=== PATIENT | female | born 1995 | race African-American/Black ===

== ENCOUNTER 2019-02-21 21:40 | Emergency (ER) | payer MEDICAID ==
[~2019-02-21] VITALS: Ht 170.2 cm; Wt 104.3 kg
[2019-02-21 22:28] LABS: *BILIRUBIN,URIN NEGATIVE (NEGATIVE); *BLOOD, URINE 3+ (NEGATIVE); *CLARITY,URINE SLIGHTLY CLOUDY (CLEAR); *COLOR,URINE YELLOW (YELLOW); *KETONES,URINE NEGATIVE (NEGATIVE); *UROBILINOGEN,URINE 0.2 E.U./dl (NORMAL); LEUKOCYTE ESTERASE ,URINE TRACE (NEGATIVE); NITRITE, URINE NEGATIVE (NEGATIVE); PH,URINE 5.5 (5.0-8.0); UGLUCOSE NEGATIVE (NEGATIVE)
[2019-02-21 22:31] LABS: *URINE HCG, QUAL NEGATIVE (NEGATIVE)
[2019-02-21 22:37] LABS: BACTERIA,URINE MODERATE /HPF (NONE SEEN); MUCUS,URINE FEW /LPF (0-FEW); SQUAMOUS EPITHELIAL CELL,UR MODERATE /HPF (NONE SEEN); YEAST,URINE MODERATE /HPF (NONE SEEN)
[2019-02-21] MEDS ORDERED: FLUCONAZOLE 100 MG TABLET PO ONE (23:15)
[2019-02-21] MEDS ORDERED: FLUCONAZOLE 100 MG TABLET ONE (23:27)
--- NOTE | 2019-02-21 23:31 | NUR ---
Patient discharged to home in stable conditon. Written and verbal after care instructions given. Patient verbalizes understanding of instructions. patient ambulatory, alert and oriented x4. Patient has good understanding of health and verblizes understanding of treatment and discharge instructions. patient left with personal belongings and discharge instructions.
== END 2019-02-21 23:38 | disposition home or self-care (01) ==
LOC: ER 21:42
DX: N76.0 Acute vaginitis (principal); B96.89 Other specified bacterial agents as the cause of diseases classified elsewhere; F17.290 Nicotine dependence, other tobacco product, uncomplicated; Z71.6 Tobacco abuse counseling
CPT/HCPCS: 84703; 87086; 87210; A4663

== ENCOUNTER 2019-03-03 15:40 | Emergency (ER) | payer MEDICAID ==
[~2019-03-03] VITALS: Ht 170.2 cm; Wt 104.8 kg
--- NOTE | 2019-03-03 16:24 | NUR ---
Dr Worthington is at bedside doing the MSE.
[2019-03-03] MEDS ORDERED: CEphaleXIN 500 MG CAPSULE PO ONE (16:30)
[2019-03-03] MEDS ORDERED: predniSONE 20 MG TABLET PO ONE (16:30)
[2019-03-03] MEDS ORDERED: CEphaleXIN 500 MG CAPSULE ONE (16:38)
[2019-03-03] MEDS ORDERED: predniSONE 50 MG TABLET ONE (16:38)
[2019-03-03] MEDS ORDERED: predniSONE 10 MG TABLET ONE (16:38)
--- NOTE | 2019-03-03 16:48 | NUR ---
Patient discharged to home in stable conditon with brisk steady gait. Written and verbal after care instructions given to patient. Patient verbalizes understanding & compliance of instructions.
== END 2019-03-03 16:50 | disposition home or self-care (01) ==
LOC: ER 15:41
DX: J02.9 Acute pharyngitis, unspecified (principal); R19.7 Diarrhea, unspecified; F17.200 Nicotine dependence, unspecified, uncomplicated
CPT/HCPCS: 99283; J7512 ×2; A4663

== ENCOUNTER 2019-03-24 00:22 | Inpatient (IN) | payer MEDICAID ==
[2019-03-24] VITALS (15 sets, daily range): BP systolic 90–117; BP diastolic 30–57
[~2019-03-24] VITALS: Ht 170.2 cm; Wt 103.9 kg
[2019-03-24] MEDS ORDERED: IV NORMAL SALINE 1000 ML BAG IV ONE (00:45)
--- NOTE | 2019-03-24 00:45 | NUR ---
at bedside for MSE,
--- NOTE | 2019-03-24 00:52 | NUR ---
Phleb. tech. at bedside for blood draw,
[2019-03-24 01:07] LABS: BASOPHILS % (AUTO) 0.7 % (0.0-2.0); EOSINOPHILS # (AUTO) 0.2 K/uL (0.0-0.7); EOSINOPHILS % (AUTO) 2.3 % (0.0-7.0); LYMPHOCYTES # (AUTO) 2.2 K/uL (20.0-40.0); LYMPHOCYTES % (AUTO) 30.5 % (20.5-51.5); MEAN CORPUSCULAR HEMOGLOBIN 19.7 uug (24.7-32.8); MEAN CORPUSCULAR HGB CONC 30 g/dL (32.3-35.6); MEAN CORPUSCULAR VOLUME 65.7 fL (75.5-95.3); MONOCYTES # (AUTO) 0.5 K/uL (2.0-10.0); MONOCYTES % (AUTO) 6.8 % (0.0-11.0); NEUTROPHILS # (AUTO) 4.4 K/uL (1.8-8.9); NEUTROPHILS % (AUTO) 59.7 % (38.5-71.5); PLATELET COUNT (AUTO) 264 K/uL (179-408); RED BLOOD CELL COUNT(AUTO) 2.55 MIL/uL (3.63-4.92); WHITE BLOOD COUNT (AUTO) 7.3 K/uL (3.8-11.8)
--- NOTE | 2019-03-24 01:09 | NUR ---
Rad. tech. at bedside for CXR,
[2019-03-24 01:15] LABS: HEMATOCRIT 16.8 % (31.2-41.9)
[2019-03-24 01:28] LABS: POTASSIUM 3.5 mmol/L (3.5-5.1)
[2019-03-24 01:44] LABS: BILIRUBIN,DIRECT 0.1 mg/dL (0.0-0.2); BILIRUBIN,TOTAL 0.4 mg/dL (0.2-1.0); TOTAL PROTEIN, SERUM 7.2 g/dL (6.4-8.2)
[2019-03-24 01:58] LABS: EOSINOPHILS % (MANUAL) 3 % (0-8); LYMPHOCYTES % (MANUAL) 30 % (20-40); MONOCYTES % (MANUAL) 4 % (2-10); NEUTROPHILS % (MANUAL) 63 % (42-75)
--- NOTE | 2019-03-24 02:00 | NUR ---
Report given to Bk VIVEROS,
--- NOTE | 2019-03-24 02:10 | NUR ---
Pt. taken off unit via wheelchair, all belongings w/ pt., belonging sheet signed, chart copied and taken up w/ pt., IV intact - no s/s infiltration/phlebitis, VSS, NAD
--- NOTE | 2019-03-24 02:30 | NUR ---
Blood picked up from lab and given to Bk VIVEROS,
--- NOTE | 2019-03-24 03:25 | NUR ---
Started PRBC transfusion. patient is hungry and is eating a sandwich with juice. Ambulated to the bathroom unassisted prior to start.
[2019-03-24] MEDS ORDERED: HYDROCODONE/APAP 5-325MG TABLET PO PRN (04:45)
[2019-03-24] MEDS ORDERED: ACETAMINOPHEN 325 MG TABLET PO PRN (04:45)
[2019-03-24] MEDS ORDERED: ONDANSETRON 4 MG/2 ML VIAL IV PRN (04:45)
--- NOTE | 2019-03-24 05:12 | NUR ---
Dr Torres was notified about BP trending down to 90/30 from 114/51, advised to continue transfusion for now.
--- NOTE | 2019-03-24 06:22 | NUR ---
Finished transfusion. No reactions noted, patient is awake and feeling well. BP 107/46, HR 85, Temp 98.8.
[2019-03-24] MEDS: PANTOPRAZOLE SODIUM 40 MG TABLET.DR PO SCH (06:29)
--- NOTE | 2019-03-24 07:30 | NUR ---
Received patient in Bed, Appears comfortable. No signs of Distress noted. No complains of Pain at this time.
[2019-03-24 09:15] LABS: BASOPHILS % (AUTO) 0.6 % (0.0-2.0); EOSINOPHILS # (AUTO) 0.1 K/uL (0.0-0.7); EOSINOPHILS % (AUTO) 2.5 % (0.0-7.0); LYMPHOCYTES # (AUTO) 1.9 K/uL (20.0-40.0); LYMPHOCYTES % (AUTO) 32.1 % (20.5-51.5); MEAN CORPUSCULAR HEMOGLOBIN 21.2 uug (24.7-32.8); MEAN CORPUSCULAR HGB CONC 31 g/dL (32.3-35.6); MEAN CORPUSCULAR VOLUME 69.3 fL (75.5-95.3); MONOCYTES # (AUTO) 0.5 K/uL (2.0-10.0); NEUTROPHILS # (AUTO) 3.4 K/uL (1.8-8.9); NEUTROPHILS % (AUTO) 56.8 % (38.5-71.5); PLATELET COUNT (AUTO) 248 K/uL (179-408); RED BLOOD CELL COUNT(AUTO) 2.92 MIL/uL (3.63-4.92); WHITE BLOOD COUNT (AUTO) 5.9 K/uL (3.8-11.8)
[2019-03-24 09:17] LABS: HEMATOCRIT 20.2 % (31.2-41.9)
[2019-03-24 09:21] LABS: HEMOGLOBIN 6.2 g/dL (10.9-14.3)
[2019-03-24 09:22] LABS: NEUTROPHILS % (MANUAL) 0 % (42-75)
[2019-03-24 13:02] LABS: IRON, SERUM 10 ug/dL (50-175)
[2019-03-24] MEDS ORDERED: FERR325T28 PO (14:35)
[2019-03-24] MEDS ORDERED: LACT1CAP71 PO (14:35)
[2019-03-24] MEDS ORDERED: PROBIOTICS (14:38)
--- NOTE | 2019-03-24 18:20 | NUR ---
patient in Bed awake, Alert and verbally responsive. No signs of Distress noted. Packed RBC 1 unit Given, No side effects noted. All needs attended and met. Independent with ADL. will endorse to oncoming Nurse.
--- NOTE | 2019-03-24 19:20 | NUR ---
Received patient lying in bed, asleep but easily arouse to verbal stimuli. AOx4. In no acute distress. Denies any pain or SOB. NSR on tele at 92/min. IV site on left AC intact and patent. Patient reported still with moderate to heavy menstrual bleeding. Denies any abdominal pain or cramping. Safety measure initiated and call solomon within reach. Addendum: 03/24/19 at 1943 by DULCE APONTE RN Patient medsurg status. No tele.
[2019-03-25] VITALS (11 sets, daily range): BP systolic 93–125; BP diastolic 34–57
--- NOTE | 2019-03-25 06:03 | NUR ---
AAOx4. In no acute distress. Denies any pain or SOB. IV site on left AC remains intact and patent. Needs attended to and met. Safety measure maintained and call solomon within reach.
[2019-03-25 06:10] LABS: BILIRUBIN,TOTAL 0.4 mg/dL (0.2-1.0); MAGNESIUM 1.9 mg/dL (1.8-2.4); PHOSPHOROUS 4.2 mg/dL (2.5-4.9); POTASSIUM 3.8 mmol/L (3.5-5.1); TOTAL PROTEIN, SERUM 6.3 g/dL (6.4-8.2)
[2019-03-25 06:12] LABS: BASOPHILS % (AUTO) 0.7 % (0.0-2.0); EOSINOPHILS # (AUTO) 0.2 K/uL (0.0-0.7); HEMATOCRIT 22.6 % (31.2-41.9); LYMPHOCYTES # (AUTO) 2.1 K/uL (20.0-40.0); LYMPHOCYTES % (AUTO) 37.7 % (20.5-51.5); MEAN CORPUSCULAR HEMOGLOBIN 22.3 uug (24.7-32.8); MEAN CORPUSCULAR HGB CONC 31 g/dL (32.3-35.6); MEAN CORPUSCULAR VOLUME 71.3 fL (75.5-95.3); MONOCYTES # (AUTO) 0.4 K/uL (2.0-10.0); MONOCYTES % (AUTO) 7.1 % (0.0-11.0); NEUTROPHILS # (AUTO) 2.8 K/uL (1.8-8.9); NEUTROPHILS % (AUTO) 50.5 % (38.5-71.5); PLATELET COUNT (AUTO) 231 K/uL (179-408); RED BLOOD CELL COUNT(AUTO) 3.17 MIL/uL (3.63-4.92); WHITE BLOOD COUNT (AUTO) 5.6 K/uL (3.8-11.8)
[2019-03-25] MEDS: PANTOPRAZOLE SODIUM 40 MG TABLET.DR PO SCH (06:14)
[2019-03-25 06:30] LABS: HEMOGLOBIN 7.1 g/dL (10.9-14.3)
[2019-03-25 07:40] LABS: EOSINOPHILS % (MANUAL) 2 % (0-8); LYMPHOCYTES % (MANUAL) 42 % (20-40); MONOCYTES % (MANUAL) 4 % (2-10); NEUTROPHILS % (MANUAL) 52 % (42-75)
[2019-03-25] MEDS ORDERED: FERROUS SULFATE 325 MG TABEC PO SCH (09:00)
--- NOTE | 2019-03-25 09:00 | NUR ---
Patient AAOx4. In no acute distress. Tolerated medication and compliant with care. Denies pain. No SOB. Seen by MD Cabrales. Ordered for another blood transfusion to be done today. If Hbg improves after transfusion, patient discharged to home.
--- NOTE | 2019-03-25 14:07 | NUR ---
Began blood transfusion
--- NOTE | 2019-03-25 15:10 | NUR ---
watch technician came at bedside during transfusion. Patient refused.
--- NOTE | 2019-03-25 16:00 | NUR ---
Patient complained of pain at IV site. Decreased rate of infusion and changed tubing. Patient tolerated. No complains of pain at this time.
--- NOTE | 2019-03-25 19:30 | NUR ---
patient received lying in bed and talking on face time with friend. no signs of acute distress. v/s stable. safety and comfort measures provided. will continue care.
--- NOTE | 2019-03-25 19:30 | NUR ---
Patient AAOx4. NO acute distress at this time. Aware of needing CBC order for Hgb reading prior discharge. Will endorse to incoming shift accordingly.
[2019-03-25 20:13] LABS: BASOPHILS % (AUTO) 0.8 % (0.0-2.0); EOSINOPHILS # (AUTO) 0.2 K/uL (0.0-0.7); EOSINOPHILS % (AUTO) 3.5 % (0.0-7.0); HEMATOCRIT 28.7 % (31.2-41.9); HEMOGLOBIN 8.9 g/dL (10.9-14.3); LYMPHOCYTES # (AUTO) 1.8 K/uL (20.0-40.0); LYMPHOCYTES % (AUTO) 30.6 % (20.5-51.5); MEAN CORPUSCULAR HEMOGLOBIN 22.8 uug (24.7-32.8); MEAN CORPUSCULAR HGB CONC 31 g/dL (32.3-35.6); MEAN CORPUSCULAR VOLUME 73.6 fL (75.5-95.3); MONOCYTES # (AUTO) 0.5 K/uL (2.0-10.0); MONOCYTES % (AUTO) 8.7 % (0.0-11.0); NEUTROPHILS # (AUTO) 3.4 K/uL (1.8-8.9); NEUTROPHILS % (AUTO) 56.4 % (38.5-71.5); PLATELET COUNT (AUTO) 249 K/uL (179-408)
--- NOTE | 2019-03-25 21:15 | NUR ---
patient discharged from [facility]. v/s stable. no signs of acute distress. arm band and blood band taken off and IV line discontinued. patient signed discharge paperwork and belongings list. copy provided to patient and original placed in patients file. grandma at bedside to roll picker patient. wheel chair refused. ELECTRO TECH walked patient and grandma out of hospital safely.
== END 2019-03-25 09:15 | disposition home or self-care (01) | DRG 663 ==
LOC: ER 00:22 → MEDSURG3 02:00
PROVIDERS: ADMIT Internal Medicine; ATTEND Student in an Organized Health Care Education/Training Program
PROC: 30233N1 Transfusion of Nonautologous Red Blood Cells into Peripheral Vein, Percutaneous Approach (ICD-10-PCS; principal; 2019-03-24)
DX: D50.0 Iron deficiency anemia secondary to blood loss (chronic) (principal); I51.7 Cardiomegaly; N93.8 Other specified abnormal uterine and vaginal bleeding
CPT/HCPCS: 36415; 70030-TC; 71045; 83550; 83735; 84100; 85025; 86850; 86900; 86901; 86920; 93005; A4663; G0378; J7030; J7040; J7050; P9016-BL; P9021

== ENCOUNTER 2020-06-26 23:32 | Emergency (ER) | payer MEDICAID ==
[~2020-06-26] VITALS: Ht 170.2 cm; Wt 97.5 kg
[~2020-06-26 23:32] MED LIST: FERR325T28 PO; PROBIOTICS
--- NOTE | 2020-06-26 23:48 | NUR ---
ERMD AT BEDSIDE FOR MSE
--- NOTE | 2020-06-26 23:58 | NUR ---
Patient discharged to home in stable condition. Written and verbal after care instructions given. Patient verbalizes understanding of instructions. Stressed follow up or return to ER for worsening s/s. Patient ambulated with stable gait.
[2020-06-26 23:59] VITALS: BP 121/79
== END 2020-06-27 | disposition home or self-care (01) ==
LOC: ER 23:42
DX: S93.401A Sprain of unspecified ligament of right ankle, initial encounter (principal); X58.XXXA Exposure to other specified factors, initial encounter; Y92.89 Other specified places as the place of occurrence of the external cause
CPT/HCPCS: A4663